=== PATIENT | female | born 1950 | race Caucasian/White ===

== ENCOUNTER 2017-11-16 14:51 | Inpatient (IN) | payer OTHER, MEDICAID, MEDICARE ==
[~2017-11-16] VITALS: Ht 149.9 cm; Wt 82.4 kg
[2017-11-16 15:45] VITALS: BP 134/63; PULSE 48; RESP 16; TEMP 98.7; O2SAT 97
[2017-11-16] MEDS ORDERED: LEXA5TAB PO (16:17)
[2017-11-16] MEDS ORDERED: LANTUS2P SQ (16:19)
[2017-11-16] MEDS ORDERED: ATEN50TA PO (16:19)
[2017-11-16] MEDS ORDERED: LEVO100T5 PO (16:19)
[2017-11-16] MEDS ORDERED: NRDRIP SQ (16:21)
[2017-11-16] MEDS ORDERED: LYRI150C PO (16:22)
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
[2017-11-16 17:56] LABS: AUTOMATED NEUTROPHIL # 5.8 TH/MM3 (1.8-7.7); BASOPHIL % 0.3 % (0.0-2.0); EOSINOPHIL % 0.1 % (0.0-4.0); HEMATOCRIT 41.1 % (35.0-46.0); HEMOGLOBIN 14.2 GM/DL (11.6-15.3); LYMPH % 29.9 % (9.0-44.0); LYMPHOCYTE # 2.8 TH/MM3 (1.0-4.8); MEAN CELL VOLUME 85.9 FL (80.0-100.0); MEAN CORPUSCULAR HEMOGLOBIN 29.7 PG (27.0-34.0); MEAN CORPUSCULAR HGB CONC 34.6 % (32.0-36.0); MEAN PLATELET VOLUME 10.3 FL (7.0-11.0); MONO % 6.8 % (0.0-8.0); MONOCYTE # 0.6 TH/MM3 (0-0.9); NEUT % 62.9 % (16.0-70.0); PLATELET COUNT 142 TH/MM3 (150-450); RED BLOOD COUNT 4.79 MIL/MM3 (4.00-5.30); RED CELL DISTRIBUTION WIDTH 15.7 % (11.6-17.2); WHITE BLOOD COUNT 9.3 TH/MM3 (4.0-11.0)
[2017-11-16 18:01] LABS: BACTERIA, URINE MOD /hpf; BILIRUBIN, URINE NEG (NEG); BLOOD, URINE NEG (NEG); GLUCOSE,URINE NEG (NEG); KETONE, URINE NEG (NEG); MUCUS URINE FEW /lpf (OCC); NITRITE,URINE NEG (NEG); PH, URINE 5.5 (5.0-8.5); SQUAMOUS EPITHELIAL CELL URINE 4 /hpf (0-5); URINE COLOR YELLOW (YELLW/STRAW); URINE LEUKOCYTE ESTERASE NEG (NEG)
[2017-11-16 18:11] LABS: ALKALINE PHOSPHATASE 83 U/L (45-117); TOTAL BILIRUBIN ADULT 0.5 MG/DL (0.2-1.0)
[2017-11-16 18:17] LABS: ALBUMIN 3.3 GM/DL (3.4-5.0); ALT (GPT) 15 U/L (10-53); AST (GOT) 25 U/L (15-37); BICARBONATE 26.4 MEQ/L (21.0-32.0); BLOOD UREA NITROGEN 19 MG/DL (7-18); CALCIUM 9.1 MG/DL (8.5-10.1); CHLORIDE 108 MEQ/L (98-107); CREATININE 1.05 MG/DL (0.50-1.00); GLOMERULAR FILTRATION RATE 52 ML/MIN (>89); GLUCOSE,RANDOM 128 MG/DL (74-106); SODIUM (NA) 142 MEQ/L (136-145)
[2017-11-16] MEDS ORDERED: LORazepam 0.5 MG TAB age > 65 yrs PO PRN (22:45)
[2017-11-16] MEDS ORDERED: ALUMINUM/MAGNESIUM/SIMETH 30 ML CUP PO PRN (22:45)
[2017-11-16] MEDS ORDERED: traZODone HCL 50 MG TAB PO PRN (22:45)
[2017-11-16] MEDS ORDERED: LORazepam 2 MG/ML VIAL - age > 65 yrs IM PRN (22:45)
[2017-11-16] MEDS ORDERED: MAGNESIUM HYDROXIDE SUSP 30 ML CUP PO PRN (22:45)
[2017-11-16] MEDS ORDERED: PILL SPLITTER OTHER PRN (23:00)
[2017-11-17] MEDS: INSULIN DETEMIR 100 UNITS/ML VIAL SQ SCH ×2 (00:20→21:44)
[2017-11-17 01:15] VITALS: BP 178/84; PULSE 54; RESP 16; TEMP 98.1; O2SAT 97
[2017-11-17 05:42] VITALS: BP 158/77; PULSE 66; RESP 16; TEMP 97.8; O2SAT 96
[2017-11-17] MEDS: LEVOTHYROXINE SODIUM 100 MCG TAB PO SCH (05:59)
[2017-11-17] MEDS: INSULIN HUMAN REGULAR 1,000 UNITS/10 ML VIAL SQ SCH ×3 (08:00→16:22)
[2017-11-17] MEDS: ATENOLOL 50 MG TAB PO SCH (08:59)
[2017-11-17] MEDS: PREGABALIN 75 MG CAP PO SCH ×3 (08:59→17:39)
[2017-11-17] MEDS ORDERED: ESCITALOPRAM OXALATE 10 MG TAB PO SCH (09:00)
[2017-11-17] MEDS ORDERED: NICOTINE 21 MG/24 HR PATCH T-DERMAL SCH (09:00)
[2017-11-17] MEDS ORDERED: hydrOXYzine HCL 50 MG TAB PO PRN (15:00)
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
--- NOTE | 2017-11-17 15:52 | PD.CONS ---
HPI Service [facility] Hospitalists Consult Requested By Psychiatric service Reason for Consult Medical management Primary Care Physician No Primary Care Physician Diagnoses: History of Present Illness This is a 67yo female with a PMHX significant for hypertension, DM, hypothyroidism, neuropathy, chronic kidney disease and fibromyalgia who presented to [facility] ED under [place] act by police secondary to suicidal ideation and has since been admitted to the inpatient psychiatric unit. Hospitalist services have been consulted for medical management. Patient seen and examined today. Patient complains of unintentional weight loss over the past 3 years going from 235 pounds 278. She endorses decreased appetite and states she basically eats one meal a day. She complains of chronic one-year history of bilateral lower abdominal pain after eating with intermittent nonbloody diarrhea. She describes the pain as constant sharp pain that occurs shortly after her one meal of the day and last all through the evening until she goes to sleep at night. She denies any alleviating factors. She denies any hematuria or dysuria. She's had a previous colonoscopy done 5 years ago in [place] which revealed diverticulitis per patient report. She denies any associated nausea or vomiting. She denies any fever or chills. Review of Systems Except as stated in HPI: all other systems reviewed are Neg Past Family Social History Allergies: Coded Allergies: No Known Allergies (Unverified , 11/16/17) Past Medical History Hypertension Diabetes Chronic kidney disease Hypothyroidism Depression Neuropathy Fibromyalgia Osteoarthritis Hypokalemia Past Surgical History Right total knee replacement Lumbar fusion Tonsillectomy Left ankle surgery Reported Medications Lyrica (Pregabalin) 150 Mg Cap 150 Mg PO TID Novolin R Inj (Insulin Human Regular) 100 Unit/Ml Inj 10 SQ TIDAC Lantus Inj (Insulin Glargine) 1,000 Unit/10 Ml Vial 60 Units SQ HS Atenolol 50 Mg Tab 50 Mg PO DAILY Levothyroxine (Levothyroxine Sodium) 100 Mcg Tab 100 Mcg PO DAILY Lexapro (Escitalopram Oxalate) 5 Mg Tab 5 Mg PO DAILY Active Ordered Medications Current Medications Medications (Trade) Dose Ordered Sig/Gloria Route Start Time Stop Time Status Last Admin (Tylenol) 650 mg Q4H PRN PO 11/16/17 22:45 (Milk Of Magnesia Liq) 30 ml DAILY PRN PO 11/16/17 22:45 (Mag-Al Plus Susp Liq) 30 ml Q6H PRN PO 11/16/17 22:45 (Synthroid) 100 mcg DAILY@0600 PO 11/17/17 06:00 11/17/17 05:59 (Tenormin) 50 mg DAILY PO 11/17/17 09:00 11/17/17 08:59 (Pill Splitter) 1 ea UNSCH PRN OTHER 11/16/17 23:00 (Levemir Inj) 60 units HS SQ 11/17/17 00:01 11/17/17 00:20 (NovoLIN R INJ) 10 units TIDAC SQ 11/17/17 08:00 (Lyrica) 150 mg TID PO 11/17/17 09:00 11/17/17 12:02 (Lexapro) 10 mg DAILY PO 11/18/17 09:00 (Desyrel) 200 mg HS PRN PO 11/17/17 21:00 (Atarax) 50 mg Q6H PRN PO 11/17/17 15:00 Family History Heart disease, lung cancer Social History Patient reports tobacco use of three quarters of a pack per day beginning in her late 30s. She denies any alcohol use. She reports marijuana use. Physical Exam Vital Signs Vital Signs Date Time Temp Pulse Resp B/P (MAP) Pulse Ox O2 Delivery O2 Flow Rate FiO2 11/17/17 05:42 97.8 66 16 158/77 (104) 96 11/17/17 01:15 98.1 54 16 178/84 (115) 97 Physical Exam GENERAL: This is a well-nourished, well-developed female patient, in no apparent distress. Awake and alert. Calm and pleasant. SKIN: No rashes, ecchymoses or lesions. Cool and dry. HEAD: Atraumatic. Normocephalic. No temporal or scalp tenderness. EYES: Pupils equal round and reactive. Extraocular motions intact. No scleral icterus. No injection or drainage. ENT: Nose without bleeding or purulent drainage. Throat without erythema, tonsillar hypertrophy or exudate. Uvula midline. Airway patent. NECK: Trachea midline. No lymphadenopathy. Supple, nontender, no meningeal signs. CARDIOVASCULAR: Regular rate and rhythm without murmurs, gallops, or rubs. RESPIRATORY: Clear to auscultation. Breath sounds equal bilaterally. No wheezes , rales, or rhonchi. GASTROINTESTINAL: Abdomen soft, non-tender, nondistended. No hepato-splenomegaly , or palpable masses. No guarding. (+)Abdominal hernia. MUSCULOSKELETAL: Extremities without clubbing, cyanosis, or edema. No joint tenderness, effusion, or edema noted. No calf tenderness. NEUROLOGICAL: Awake and alert. Cranial nerves II through XII grossly intact. Motor and sensory grossly within normal limits. Five out of 5 muscle strength in all muscle groups. Normal speech. Laboratory Laboratory Tests Test 11/16/17 16:50 11/16/17 17:24 Urine Color YELLOW Urine Turbidity CLEAR Urine pH 5.5 Urine Specific [place] 1.025 Urine Protein TRACE Urine Glucose (UA) NEG Urine Ketones NEG Urine Occult Blood NEG Urine Nitrite NEG Urine Bilirubin NEG Urine Urobilinogen LESS THAN 2.0 Urine Leukocyte Esterase NEG Urine RBC 1 Urine WBC 1 Urine Squamous Epithelial Cells 4 Urine Bacteria MOD Urine Mucus FEW Microscopic Urinalysis Comment CULTURE INDICATED White Blood Count 9.3 Red Blood Count 4.79 Hemoglobin 14.2 Hematocrit 41.1 Mean Corpuscular Volume 85.9 Mean Corpuscular Hemoglobin 29.7 Mean Corpuscular Hemoglobin Concent 34.6 Red Cell Distribution Width 15.7 Platelet Count 142 Mean Platelet Volume 10.3 Neutrophils (%) (Auto) 62.9 Lymphocytes (%) (Auto) 29.9 Monocytes (%) (Auto) 6.8 Eosinophils (%) (Auto) 0.1 Basophils (%) (Auto) 0.3 Neutrophils # (Auto) 5.8 Lymphocytes # (Auto) 2.8 Monocytes # (Auto) 0.6 Eosinophils # (Auto) 0.0 Basophils # (Auto) 0.0 CBC Comment DIFF FINAL Differential Comment Blood Urea Nitrogen 19 Creatinine 1.05 Random Glucose 128 Total Protein 7.0 Albumin 3.3 Calcium Level 9.1 Alkaline Phosphatase 83 Aspartate Amino Transf (AST/SGOT) 25 Alanine Aminotransferase (ALT/SGPT) 15 Total Bilirubin 0.5 Sodium Level 142 Potassium Level 4.2 Chloride Level 108 Carbon Dioxide Level 26.4 Anion Gap 8 Estimat Glomerular Filtration Rate 52 Date/Time Source Procedure Growth Status 11/16/17 16:50 Urine Clean Catch Urine Culture Pending Received Result Diagram: 11/16/17 1724 11/16/17 1724 Assessment and Plan Assessment and Plan 67yo female with a PMHX significant for hypertension, DM, hypothyroidism, neuropathy, chronic kidney disease and fibromyalgia who presented to [facility] ED under [place] act by police secondary to suicidal ideation and has since been admitted to the inpatient psychiatric unit. Hospitalist services have been consulted for medical management. Depression Suicidal ideation - Management per psychiatric team Abdominal pain, chronic Intermittent diarrhea Unintentional weight loss - She reports chronic bilateral lower abdominal pain beginning shortly after eating and lasts for hours without any alleviating factors - Consult GI, appreciate recommendations Hypertension - Bradycardia with heart rate 48 at ED presentation. - Patients home dose of atenolol resumed by primary team. May need to discontinue and change to different antihypertensive. Will continue to monitor heart rate. - Continue to monitor BP and adjust treatment accordingly Diabetes - Patient continued on home dose of Levemir 60 units at night. Hold preprandial insulin coverage for now. - Accu-Cheks and insulin sliding scale - obtain HgbA1c CKD - creatinine 1.05/GFR 52 - unknown baseline - Avoid nephrotoxic agents - Continue to monitor kidney function as indicated Hypothyroidism - Resume home dose of levothyroxine 100 g daily - obtain TSH level Neuropathy - continue on home dose of Lyrica DVT prophylaxis - Patient is ambulatory Thank you very kindly for this consultation. We'll continue to follow patient with you. Discussed Condition With Patient, nursing staff Kaylee Sandoval Nov 17, 2017 15:52
[2017-11-17] MEDS ORDERED: GLUCAGON 1 MG/ML VIAL OTHER PRN (16:45)
[2017-11-17] MEDS ORDERED: DEXTROSE 50% IN WATER 50 ML VIAL(D50) IV PUSH PRN (16:45)
[2017-11-17] MEDS: INSULIN ASPART SUPPLEMENTAL SCALE SQ SCH ×2 (17:00→21:00)
[2017-11-17] MEDS ORDERED: PREGABALIN 75 MG CAP PO SCH (18:00)
[2017-11-17] MEDS: ACETAMINOPHEN 325 MG TAB PO PRN (18:06)
--- NOTE | 2017-11-17 18:34 | EKG ---
Date Performed: 11/16/2017 Time Performed: 17:10:10 PTAGE: 67 years EKG: SINUS BRADYCARDIA BORDERLINE ECG NO PREVIOUS TRACING DOCTOR: Jorge Whelan Interpretating Date/Time 11/17/2017 18:29:49
[2017-11-17 18:38] VITALS: BP 158/77; PULSE 49; RESP 17; TEMP 97.5; O2SAT 98
[2017-11-17 18:39] VITALS: BP 158/77; PULSE 49; RESP 17; TEMP 97.5; O2SAT 98
[2017-11-17] MEDS: traZODone HCL 100 MG TAB PO PRN (20:42)
[2017-11-17] MEDS ORDERED: INSULIN GLARGINE 1,000 UNITS/10 ML VIAL SQ SCH (21:00)
[2017-11-18] MEDS: LEVOTHYROXINE SODIUM 100 MCG TAB PO SCH (05:58)
[2017-11-18 06:03] VITALS: BP 116/61; PULSE 54; RESP 18; TEMP 98.3; O2SAT 96
[2017-11-18] MEDS: INSULIN ASPART SUPPLEMENTAL SCALE SQ SCH ×4 (08:00→21:00)
[2017-11-18 08:34] LABS: BICARBONATE 22.9 MEQ/L (21.0-32.0); CALCIUM 9.8 MG/DL (8.5-10.1); CHLORIDE 105 MEQ/L (98-107); CREATININE 1.04 MG/DL (0.50-1.00); GLOMERULAR FILTRATION RATE 53 ML/MIN (>89); GLUCOSE,RANDOM 106 MG/DL (74-106); SODIUM (NA) 141 MEQ/L (136-145)
[2017-11-18 08:35] LABS: CHOLESTEROL 260 MG/DL (120-200); TRIGLYCERIDES 467 MG/DL (42-150)
[2017-11-18 08:36] LABS: BLOOD UREA NITROGEN 17 MG/DL (7-18)
[2017-11-18 08:45] LABS: HDL CHOLESTEROL 31.3 MG/DL (40.0-60.0)
[2017-11-18] MEDS: ATENOLOL 50 MG TAB PO SCH (08:58)
[2017-11-18] MEDS: ACETAMINOPHEN 325 MG TAB PO PRN (08:58)
[2017-11-18] MEDS: ESCITALOPRAM OXALATE 10 MG TAB PO SCH (08:59)
[2017-11-18] MEDS: PREGABALIN 75 MG CAP PO SCH ×3 (08:59→18:09)
[2017-11-18] MEDS ORDERED: ATENOLOL 50 MG TAB PO SCH (09:00)
[2017-11-18] MEDS ORDERED: LEVOTHYROXINE SODIUM 100 MCG TAB PO SCH (09:00)
--- NOTE | 2017-11-18 11:52 | HHI.PR ---
Subjective Remarks Follow-up on patient with postprandial abdominal pain. Patient seen and examined. Patient states abdominal pain is unchanged. She denies any fever or chills. Denies any chest pain or shortness of breath. Discussed with patient use of atenolol as blood pressure medication given bradycardia during this admission. Patient denies any history of atrial fibrillation. Discussed starting on statin therapy for elevated triglyceride level 467. Patient refuses statin therapy but is amenable to fish oil supplementation. Discussed lifestyle modifications. Also recommended patient follow up with her primary care physician as outpatient to have lipid profile redrawn in 6-8 weeks. Objective Vitals Vital Signs Date Time Temp Pulse Resp B/P (MAP) Pulse Ox O2 Delivery O2 Flow Rate FiO2 11/18/17 06:03 98.3 54 18 116/61 (79) 96 11/17/17 18:39 97.5 49 17 158/77 (104) 98 11/17/17 18:38 97.5 49 17 158/77 (104) 98 I/O 11/17/17 11/17/17 11/17/17 11/18/17 11/18/17 11/18/17 07:00 15:00 23:00 07:00 15:00 23:00 Intake Total 240 ml 360 ml Balance 240 ml 360 ml Intake Oral 240 ml 360 ml Result Diagram: 11/16/17 1724 11/18/17 0625 Objective Remarks GENERAL: This is a well-nourished, well-developed female patient, in no apparent distress. Awake and alert. Seated in the dayroom eating lunch. SKIN: Cool and dry. HEAD: Atraumatic. Normocephalic. EYES: Extraocular motions intact. No scleral icterus. No injection or drainage. ENT: Nose without bleeding or purulent drainage. Airway patent. MMM. NECK: Trachea midline. CARDIOVASCULAR: Regular rate and rhythm without murmurs, gallops, or rubs. RESPIRATORY: Clear to auscultation. Breath sounds equal bilaterally. No wheezes , rales, or rhonchi. GASTROINTESTINAL: Abdomen soft, non-tender, nondistended. (+)Abdominal hernia. MUSCULOSKELETAL: Extremities without clubbing, cyanosis, or edema. NEUROLOGICAL: Awake and alert. Able to move all extremities spontaneously. No focal neurologic findings. Normal speech. Medications and IVs Active Medications Atenolol (Tenormin) 50 mg DAILY PO; Start 11/18/17 at 09:00; Stop 11/18/17 at 09 :00; Status DC Dextrose (D50w (Vial) Inj) 50 ml UNSCH PRN IV PUSH; Start 11/17/17 at 16:45 Escitalopram Oxalate (Lexapro) 10 mg DAILY PO Last administered on 11/18/17at 08: 59; Admin Dose 10 MG; Start 11/18/17 at 09:00 Glucagon (Glucagon Inj) 1 mg UNSCH PRN OTHER; Start 11/17/17 at 16:45 Hydroxyzine HCl (Atarax) 50 mg Q6H PRN PO; Start 11/17/17 at 15:00 Insulin Aspart (NovoLOG SUPPLEMENTAL SCALE) 1 ACHS SLIDING SCALE SQ; Start at 17:00 Insulin Glargine (Lantus Inj) 60 units HS SQ; Start 11/17/17 at 21:00; Stop at 21:00; Status DC Levothyroxine Sodium (Synthroid) 100 mcg DAILY PO; Start 11/18/17 at 09:00; Stop 11/18/17 at 09:00; Status DC Pregabalin (Lyrica) 150 mg TID PO; Start 11/17/17 at 18:00; Stop 11/17/17 at 18: 00; Status DC Trazodone HCl (Desyrel) 200 mg HS PRN PO Last administered on 11/17/17at 20:42; Admin Dose 200 MG; Start 11/17/17 at 21:00 A/P Assessment and Plan 67yo female with a PMHX significant for hypertension, DM, hypothyroidism, neuropathy, chronic kidney disease and fibromyalgia who presented to [facility] ED under [place] act by police secondary to suicidal ideation and has since been admitted to the inpatient psychiatric unit. Hospitalist services have been consulted for medical management. Depression Suicidal ideation Polysubstance abuse - Management per psychiatric team - UDS positive for amphetamines, cocaine and cannabinoids Abdominal pain, chronic Intermittent diarrhea Unintentional weight loss - She reports chronic bilateral lower abdominal pain beginning shortly after eating and lasts for hours without any alleviating factors - GI consulted, awaiting recommendations, appreciate assistance. Hypertension - Bradycardia on atenolol. UDS positive for cocaine. - Discontinue atenolol. Start low dose Lisinopril and Norvasc. - Continue to monitor BP and adjust treatment accordingly Diabetes - Patient continued on home dose of Levemir 60 units at night. Hold preprandial insulin coverage for now. Blood sugar 75 this morning. Hold Levemir for now. - Accu-Cheks and insulin sliding scale - HgbA1c pending CKD - creatinine 1.05/GFR 52 - unknown baseline - Avoid nephrotoxic agents - Continue to monitor kidney function as indicated Hypothyroidism - Continue home dose of levothyroxine 100 g daily - TSH level 3.290 Hypertriglyceridemia - Discussed with patient starting statin therapy. Patient currently refuses. She is agreeable to fish oil supplementation. Discussed lifestyle/ dietary modification. - Recommend patient follow-up with repeat lipid profile as outpatient with PCP in 6-8 weeks. Neuropathy - continue on home dose of Lyrica DVT prophylaxis - Patient is ambulatory Kaylee Sandoval Nov 18, 2017 11:52
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
--- NOTE | 2017-11-18 13:32 | HHI.PYPN ---
Subjective Remarks Patient seen today in [place] with floor staff, and nurse Sabine, chart review, compliant medications, hospitalist consultation review noted and appreciated. Patient continues somewhat scattered focusing on her children her experiences interrelationships of many years ago. I continued to refocus her on the present situation and her need to make decisions concerning placement attempts at [facility] from her children. At this time I feel patient would probably be best served by being placed in RETIREMENT for a few months allow her to gain some confidence and abilities to live independently. We will be judicious with the medications. We will help her find mental health services perhaps with community management services. For now continue treatment Review of Systems Except as stated in HPI: all other systems reviewed are Neg Mental Status Examination Appearance: Appropriate Consciousness: Alert Orientation: Person, Place, Date/Time Speech: Unremarkable, Rapid Language: Adequate (somewhat) Fund of Knowledge: Adequate Attention and Concentration: Other (fair) Memory: Unremarkable (fair) Mood: Sad Affect: Other (slight increased range and intensity) Thought Process & Associations: Intact Thought Content: Appropriate Hallucination Type: None Delusion Type: Paranoid (perhaps mildly) Suicidal Ideation: Yes (denies) Suicidal Plan: Yes (denies) Suicidal Intention: Yes (denies) Homicidal Ideation: No Homicidal Plan: No Homicidal Intention: No Insight: Poor Judgment: Poor Results Labs Test 11/18/17 06:25 Blood Urea Nitrogen 17 MG/DL Creatinine 1.04 MG/DL Random Glucose 106 MG/DL Calcium Level 9.8 MG/DL Sodium Level 141 MEQ/L Potassium Level 3.6 MEQ/L Chloride Level 105 MEQ/L Carbon Dioxide Level 22.9 MEQ/L Anion Gap 13 MEQ/L Estimat Glomerular Filtration Rate 53 ML/MIN Triglycerides Level 467 MG/DL Cholesterol Level 260 MG/DL LDL Cholesterol MG/DL HDL Cholesterol 31.3 MG/DL Cholesterol/HDL Ratio 8.30 RATIO Thyroid Stimulating Hormone 3rd Gen 3.290 uIU/ML Date/Time Source Procedure Growth Status 11/16/17 16:50 Urine Clean Catch Urine Culture - Final 50-100,000 CFU/ML MIXED GRAM POSITIVE... Complete Vitals/IOs Vital Signs Date Time Temp Pulse Resp B/P (MAP) Pulse Ox O2 Delivery O2 Flow Rate FiO2 11/18/17 06:03 98.3 54 18 116/61 (79) 96 Assessment & Plan Problem List: (1) Adjustment disorder with mixed disturbance of emotions and conduct ICD Codes: F43.25 - Adjustment disorder with mixed disturbance of emotions and conduct Assessment & Plan Estimated LOS: days patient continues somewhat depressed irritable needy codependent. Will have counselor work with patient looking into [facility] placement, will continue working with the hospitalist team also Justification for Cont. Inpt. At this time patient with decompensated placed in a lower level of care Discharge Planning Need to work with patient related to placement issues return to family versus [facility] Request HC Surrog/Guard Advoc?: No Ronald Whittington MD Nov 18, 2017 13:32
--- NOTE | 2017-11-18 15:17 | PD.CONS ---
HPI History of Present Illness This is a 67 year old female admitted under amezquita act for suicidal ideation. GI has been consulted for unintentional weight loss and lower abd pain. Over the last 2 years she has lost over 60 lbs. She has been having lower abd pain that is worse after eating and worse in the afternoon for the last 2.5 years. IN the last year she has had decreaesd appetite and loose stools. Denies n/v, blood in stool, dark tarry stool. Says she was diagnosed with peptic ulcer disease but is not sure how she was diagnosed. Last colonoscopy was 5 y ago and diverticulosis found. (Ada Contreras) PFSH Past Medical History fibromyalgia diverticulosis PUD HTN hypthyroid CKD Past Surgical History knee replacement PLIF ankle surgery (Ada Contreras) Coded Allergies: No Known Allergies (Unverified , 11/16/17) Family History OA fibromyalgia DM Social History denies ETOH, former smoker admits use of marijuana denies other illicit drug use but was pos for cocaine, amphetamines (Ada Contreras) Review of Systems Constitutional: COMPLAINS OF: Weight loss, DENIES: Fever Endocrine: DENIES: Polydipsia Eyes: DENIES: Blurred vision Ears, nose, mouth, throat: DENIES: Hearing loss Respiratory: DENIES: Cough Cardiovascular: DENIES: Chest pain Gastrointestinal: COMPLAINS OF: Abdominal pain, Diarrhea, DENIES: Black stools , Bloody stools, Nausea, Vomiting Genitourinary: DENIES: Hematuria Musculoskeletal: DENIES: Joint Swelling Integumentary: DENIES: Abnormal pigmentation Hematologic/lymphatic: DENIES: Bruising Neurologic: COMPLAINS OF: Abnormal gait (ambulates with walker) Psychiatric: DENIES: Confusion (Ada Contreras) GI Exam Vitals I&O Vital Signs Date Time Temp Pulse Resp B/P (MAP) Pulse Ox O2 Delivery O2 Flow Rate FiO2 11/18/17 06:03 98.3 54 18 116/61 (79) 96 11/17/17 18:39 97.5 49 17 158/77 (104) 98 11/17/17 18:38 97.5 49 17 158/77 (104) 98 I/O 11/17/17 11/17/17 11/17/17 11/18/17 11/18/1718 07:00 15:00 23:00 07:00 15:00 23:00 Intake Total 240 ml 360 ml Balance 240 ml 360 ml Intake Oral 240 ml 360 ml Laboratory Test 11/18/17 06:25 Blood Urea Nitrogen 17 MG/DL Creatinine 1.04 MG/DL Random Glucose 106 MG/DL Calcium Level 9.8 MG/DL Sodium Level 141 MEQ/L Potassium Level 3.6 MEQ/L Chloride Level 105 MEQ/L Carbon Dioxide Level 22.9 MEQ/L Anion Gap 13 MEQ/L Estimat Glomerular Filtration Rate 53 ML/MIN Triglycerides Level 467 MG/DL Cholesterol Level 260 MG/DL LDL Cholesterol MG/DL HDL Cholesterol 31.3 MG/DL Cholesterol/HDL Ratio 8.30 RATIO Thyroid Stimulating Hormone 3rd Gen 3.290 uIU/ML Date/Time Source Procedure Growth Status 11/16/17 16:50 Urine Clean Catch Urine Culture - Final 50-100,000 CFU/ML MIXED GRAM POSITIVE... Complete Physical Examination HEENT: PERRL; normocephalic; atraumatic; no jaundice. CHEST: CTA CARDIAC: RRR ABDOMEN: Soft, obese, nontender; no hepatosplenomegaly; bowel sounds are present in all four quadrants. EXTREMITIES: No clubbing, cyanosis, or edema. SKIN: Normal; no rash; no jaundice. INSIDE SOLAR SALES CONSULTANT: No focal deficits; alert and oriented times three. (Ada Contreras) Assessment and Plan Plan ASSESSMENT - loose stool, unintended weight loss, decreased appetite, lower abd pain - unclear etiology. loss > 60lbs in last 2 y + lower abd pain last year decreased appetite, loose stools. last colonsocopy 5 y ago with finding diverticulosis. unclear etiology could be r/t depression - amezquita act, suicidal ideation - per psych pt is competent to give consent for treatment PLAN - EGD and colonscopy - obtain consent - clear liquids - NPO after midnight - golytely prep - consider CT abd - further recs to follow pt seen by myself and Dr Canales and this note is written on his behalf (Ada Contreras) Physician Comments Patient seen and examined Agree with above Continue current supportive care Monitor labs Plan for an EGD and a colonoscopy tomorrow If negative we'll pursue CT of the abdomen (Prasanna Canales MD) Ada Contreras Nov 18, 2017 15:17 Prasanna Canales MD Nov 18, 2017 21:30
[2017-11-18] MEDS ORDERED: PEG (High)/E-LYTE SOLN 4000 ML BTL PO ONE (16:15)
[2017-11-18 16:45] VITALS: BP 135/78; PULSE 44; RESP 18; TEMP 97.9; O2SAT 97
[2017-11-18 16:46] LABS: HEMOGLOBIN A1C 6.9 % (4.3-6.0)
[2017-11-19] MEDS: ACETAMINOPHEN 325 MG TAB PO PRN (04:58)
[2017-11-19 05:46] VITALS: BP 147/67; PULSE 58; RESP 16; TEMP 97; O2SAT 97
[2017-11-19] MEDS: LEVOTHYROXINE SODIUM 100 MCG TAB PO SCH (06:08)
[2017-11-19] MEDS: INSULIN ASPART SUPPLEMENTAL SCALE SQ SCH ×4 (08:00→20:26)
[2017-11-19] MEDS: ESCITALOPRAM OXALATE 10 MG TAB PO SCH (09:00)
[2017-11-19] MEDS: LISINOPRIL 5 MG TAB PO SCH (09:00)
[2017-11-19] MEDS: amLODIPine BESYLATE 5 MG TAB PO SCH (09:00)
[2017-11-19] MEDS: PREGABALIN 75 MG CAP PO SCH ×3 (09:00→18:00)
--- NOTE | 2017-11-19 16:40 | HHI.PYPN ---
Subjective Remarks Patient seen in day room with her staff, chart review, patient discussed with nurse. Patient just returned from colonoscopy and is eating dinner heartily. Patient alert oriented calm cooperative. She denies suicidality homicidality voices or visions. Continues though some of a hopelessness and the manipulation with this lady. However at this time with discussion with the treatment team refill patient no longer meets criteria for acute inpatient psychiatric hospitalization. I did share this and discuss this with the patient. Patient to be discharged tomorrow. She needs to use her resources help her find a placement will aware counselor also assist if possible. Review of Systems Except as stated in HPI: all other systems reviewed are Neg Mental Status Examination Appearance: Appropriate Consciousness: Alert Orientation: Person, Place, Date/Time Speech: Unremarkable, Rapid Language: Adequate (somewhat) Fund of Knowledge: Adequate Attention and Concentration: Other (fair) Memory: Unremarkable (fair) Mood: Sad Affect: Other (slight increased range and intensity) Thought Process & Associations: Intact Thought Content: Appropriate Hallucination Type: None Delusion Type: Paranoid (perhaps mildly) Suicidal Ideation: Yes (denies) Suicidal Plan: Yes (denies) Suicidal Intention: Yes (denies) Homicidal Ideation: No Homicidal Plan: No Homicidal Intention: No Insight: Poor Judgment: Poor Results Labs Date/Time Source Procedure Growth Status 11/16/17 16:50 Urine Clean Catch Urine Culture - Final 50-100,000 CFU/ML MIXED GRAM POSITIVE... Complete Vitals/IOs Vital Signs Date Time Temp Pulse Resp B/P (MAP) Pulse Ox O2 Delivery O2 Flow Rate FiO2 11/19/17 05:46 97.0 58 16 147/67 (93) 97 Assessment & Plan Problem List: (1) Adjustment disorder with mixed disturbance of emotions and conduct ICD Codes: F43.25 - Adjustment disorder with mixed disturbance of emotions and conduct Assessment & Plan Estimated LOS: days patient's mood is improving, she is more alert oriented focused socializing well with other patients on the day room. Did tell with colonoscopy all difficult she is not eating her dinner without problems. Consider discharge tomorrow Justification for Cont. Inpt. At this time patient Seen in the placement of an appropriate level of care needed for the 21st observation Discharge Planning Consider discharge tomorrow Request HC Surrog/Guard Advoc?: No Ronald Whittington MD Nov 19, 2017 16:40
[2017-11-19 17:10] VITALS: BP 168/77; PULSE 50; RESP 16; TEMP 97.5; O2SAT 97
[2017-11-20 05:56] VITALS: BP 126/63; PULSE 82; RESP 18; TEMP 98.2; O2SAT 97
[2017-11-20] MEDS: LEVOTHYROXINE SODIUM 100 MCG TAB PO SCH (06:00)
[2017-11-20] MEDS: INSULIN ASPART SUPPLEMENTAL SCALE SQ SCH ×4 (08:00→20:44)
[2017-11-20] MEDS: ESCITALOPRAM OXALATE 10 MG TAB PO SCH (08:47)
[2017-11-20] MEDS: amLODIPine BESYLATE 5 MG TAB PO SCH (08:47)
[2017-11-20] MEDS: PREGABALIN 75 MG CAP PO SCH ×3 (08:48→17:26)
[2017-11-20] MEDS: LISINOPRIL 5 MG TAB PO SCH (08:48)
--- NOTE | 2017-11-20 11:42 | HHI.PYPN ---
Subjective Remarks Patient seen in her room with nurse Red, chart review, discussed with nurse. Patient compliant medications, states she's been unable to find anybody who would take her in at this time. She continues somewhat manipulative needy and dependent. However I also feel that discharge at this time without having some type of placement up with this lady at significant risk. Thus I will allow her to remain here over the weekend, this is recently and there is no available lodging that she could afford if he did have money. However I was quite firm with her that she needs to find some type of placement over this weekend or she may be discharged with a homeless status on Thursday. Patient did denies suicidality homicidality voices or visions we will increase Lexapro to 20 mg daily Review of Systems Except as stated in HPI: all other systems reviewed are Neg Mental Status Examination Appearance: Appropriate Consciousness: Alert Orientation: Person, Place, Date/Time Speech: Unremarkable, Rapid Language: Adequate (somewhat) Fund of Knowledge: Adequate Attention and Concentration: Other (fair) Memory: Unremarkable (fair) Mood: Sad Affect: Other (slight increased range and intensity) Thought Process & Associations: Intact Thought Content: Appropriate Hallucination Type: None Delusion Type: Paranoid (perhaps mildly) Suicidal Ideation: Yes (denies) Suicidal Plan: Yes (denies) Suicidal Intention: Yes (denies) Homicidal Ideation: No Homicidal Plan: No Homicidal Intention: No Insight: Poor Judgment: Poor Results Labs Date/Time Source Procedure Growth Status 11/16/17 16:50 Urine Clean Catch Urine Culture - Final 50-100,000 CFU/ML MIXED GRAM POSITIVE... Complete Vitals/IOs Vital Signs Date Time Temp Pulse Resp B/P (MAP) Pulse Ox O2 Delivery O2 Flow Rate FiO2 11/20/17 05:56 98.2 82 18 126/63 (84) 97 Intake and Output 11/20/17 11/20/17 11/21/17 08:00 16:00 00:00 Intake Total 240 ml Balance 240 ml Assessment & Plan Problem List: (1) Adjustment disorder with mixed disturbance of emotions and conduct ICD Codes: F43.25 - Adjustment disorder with mixed disturbance of emotions and conduct Assessment & Plan Estimated LOS: days patient weighs somewhat depressed and anxious though this seems to be somewhat more related to placement issues and homelessness at this time. For now I will adjust her Lexapro increasing it to 20 mg daily we'll continue hospitalization of the weekend with consideration of discharge on Thursday 11/23 Justification for Cont. Inpt. At this time patient may decompensate now placed in an appropriate level of care Discharge Planning Patient will be given the weekend to finding appropriate placement Request HC Surrog/Guard Advoc?: No Ronald Whittington MD Nov 20, 2017 11:42
--- NOTE | 2017-11-20 14:27 | HHI.PR ---
Subjective Remarks Follow-up on patient with abdominal pain, hypertension. Patient seen and examined. Denies any abdominal pain at this time. Denies any fever or chills. When asked if she has any chest pain or shortness of breath she replies "I do not know". States she feels depressed. Objective Vitals Vital Signs Date Time Temp Pulse Resp B/P (MAP) Pulse Ox O2 Delivery O2 Flow Rate FiO2 11/20/17 05:56 98.2 82 18 126/63 (84) 97 11/19/17 17:10 97.5 50 16 168/77 (107) 97 I/O 11/19/17 11/19/17 11/19/17 11/20/17 11/20/17 11/20/17 07:00 15:00 23:00 07:00 15:00 23:00 Intake Total 480 ml Balance 480 ml Intake Oral 480 ml Result Diagram: 11/16/17 1724 11/18/17 0625 Objective Remarks GENERAL: This is a well-nourished, well-developed female patient, in no apparent distress. Awake and alert. Lying in bed. SKIN: Cool and dry. HEAD: Atraumatic. Normocephalic. EYES: Extraocular motions intact. No scleral icterus. No injection or drainage. ENT: Nose without bleeding or purulent drainage. Airway patent. MMM. NECK: Trachea midline. CARDIOVASCULAR: Regular rate and rhythm without murmurs, gallops, or rubs. RESPIRATORY: Clear to auscultation. Breath sounds equal bilaterally. No wheezes , rales, or rhonchi. GASTROINTESTINAL: Abdomen soft, non-tender, nondistended. (+)Abdominal hernia. MUSCULOSKELETAL: Extremities without clubbing, cyanosis, or edema. NEUROLOGICAL: Awake and alert. Able to move all extremities spontaneously. No focal neurologic findings. Normal speech. Medications and IVs Current Medications Medications (Trade) Dose Ordered Sig/Gloria Route Start Time Stop Time Status Last Admin (Tylenol) 650 mg Q4H PRN PO 11/16/17 22:45 11/19/17 04:58 (Milk Of Magnesia Liq) 30 ml DAILY PRN PO 11/16/17 22:45 (Mag-Al Plus Susp Liq) 30 ml Q6H PRN PO 11/16/17 22:45 (Synthroid) 100 mcg DAILY@0600 PO 11/17/17 06:00 11/20/17 06:00 (Pill Splitter) 1 ea UNSCH PRN OTHER 11/16/17 23:00 (Levemir Inj) 60 units HS SQ 11/17/17 00:01 Future Hold 11/17/17 21:44 (NovoLIN R INJ) 10 units TIDAC SQ 11/17/17 08:00 Future Hold (Lyrica) 150 mg TID PO 11/17/17 09:00 11/20/17 13:51 (Desyrel) 200 mg HS PRN PO 11/17/17 21:00 11/17/17 20:42 (Atarax) 50 mg Q6H PRN PO 11/17/17 15:00 (D50w (Vial) Inj) 50 ml UNSCH PRN IV PUSH 11/17/17 16:45 (Glucagon Inj) 1 mg UNSCH PRN OTHER 11/17/17 16:45 (NovoLOG SUPPLEMENTAL SCALE) 1 ACHS SLIDING SCALE SQ 11/17/17 17:00 11/19/17 20:26 (Prinivil) 2.5 mg DAILY PO 11/19/17 09:00 11/20/17 08:48 (Norvasc) 5 mg DAILY PO 11/19/17 09:00 11/20/17 08:47 (Lexapro) 20 mg DAILY PO 11/21/17 09:00 A/P Assessment and Plan 67yo female with a PMHX significant for hypertension, DM, hypothyroidism, neuropathy, chronic kidney disease and fibromyalgia who presented to [facility] ED under Kohler act by police secondary to suicidal ideation and has since been admitted to the inpatient psychiatric unit. Hospitalist services have been consulted for medical management. Depression Suicidal ideation Polysubstance abuse - Management per psychiatric team - UDS positive for amphetamines, cocaine and cannabinoids Abdominal pain, chronic Intermittent diarrhea Unintentional weight loss - She reports chronic bilateral lower abdominal pain beginning shortly after eating and lasts for hours without any alleviating factors - GI following, status post EGD and colonoscopy which were both essentially unremarkable. Awaiting biopsy results. Recommended high-fiber diet and repeat colonoscopy in 5 years. Hypertension - Bradycardia on atenolol. UDS positive for cocaine. - Discontinue atenolol. Start low dose Lisinopril and Norvasc. - Continue to monitor BP and adjust treatment accordingly Diabetes - Patient continued on home dose of Levemir 60 units at night. Hold preprandial insulin coverage for now. Blood sugars well controlled off of any scheduled insulin. Continue to hold home Levemir. - Accu-Cheks and insulin sliding scale - HgbA1c 6.9 CKD - creatinine 1.05/GFR 52 - unknown baseline - Avoid nephrotoxic agents - Continue to monitor kidney function as indicated Hypothyroidism - Continue home dose of levothyroxine 100 g daily - TSH level 3.290 Hypertriglyceridemia - Discussed with patient starting statin therapy. Patient currently refuses. She is agreeable to daily fish oil supplementation. Discussed lifestyle/dietary modification. - Recommend patient follow-up with repeat lipid profile as outpatient with PCP in 6-8 weeks. Neuropathy - continue on home dose of Lyrica DVT prophylaxis - Patient is ambulatory Patient appears stable from medical standpoint. We will sign off for now. Please reconsult if needed. Kaylee Sandoval Nov 20, 2017 14:27
--- NOTE | 2017-11-20 15:09 | HHI.GIFU ---
Subjective Remarks Pt sitting in day room. Abd pain unchanged. She said she is full from eating so much. (Ada Contreras) Objective Vitals I&O Vital Signs Date Time Temp Pulse Resp B/P (MAP) Pulse Ox O2 Delivery O2 Flow Rate FiO2 11/20/17 05:56 98.2 82 18 126/63 (84) 97 11/19/17 17:10 97.5 50 16 168/77 (107) 97 I/O 11/19/17 11/19/17 11/19/17 11/20/17 11/20/17 11/20/17 07:00 15:00 23:00 07:00 15:00 23:00 Intake Total 480 ml Balance 480 ml Intake Oral 480 ml Laboratory Date/Time Source Procedure Growth Status 11/16/17 16:50 Urine Clean Catch Urine Culture - Final 50-100,000 CFU/ML MIXED GRAM POSITIVE... Complete Physical Exam HEENT: PERRL; normocephalic; atraumatic; no jaundice. CHEST: CTA CARDIAC: RRR ABDOMEN: Soft, obese, nontender; no hepatosplenomegaly; bowel sounds are present in all four quadrants. EXTREMITIES: No clubbing, cyanosis, or edema. SKIN: Normal; no rash; no jaundice. SAP GATHERER: No focal deficits; alert and oriented times three. (Ada Contreras) Assessment and Plan Plan ASSESSMENT - loose stool, unintended weight loss, decreased appetite, lower abd pain - unclear etiology. loss > 60lbs in last 2 y + lower abd pain last year decreased appetite, loose stools. last colonsocopy 5 y ago with finding diverticulosis. unclear etiology could be r/t depression - amezquita act, suicidal ideation - per psych pt is competent to give consent for treatment 11/20/17 S/P EGD and colonoscopy 11/19 aside from small rectal polyp there were no abnormal findings. Bx pending. PLAN - [facility] - await bx - f/u with GI after d/c - GI will sign off. Please reconsult if needed pt seen by myself and Dr Canales and this note is written on his behalf (Ada Contreras) Physician Comments Patient seen and examined Agree with above Continue with current supportive care Monitor labs We will sign off (Prasanna Canales MD) Ada Contreras Nov 20, 2017 15:09 Prasanna Canales MD Nov 20, 2017 19:49
[2017-11-20 18:00] VITALS: BP 149/70; PULSE 105; RESP 18; TEMP 97.9; O2SAT 97
[2017-11-20] MEDS: traZODone HCL 100 MG TAB PO PRN (20:48)
[2017-11-20] MEDS: ACETAMINOPHEN 325 MG TAB PO PRN (20:49)
[2017-11-21] MEDS: LEVOTHYROXINE SODIUM 100 MCG TAB PO SCH (05:37)
[2017-11-21 06:14] VITALS: BP 121/58; PULSE 56; RESP 16; TEMP 97.7; O2SAT 97
[2017-11-21] MEDS: INSULIN ASPART SUPPLEMENTAL SCALE SQ SCH ×5 (08:29→22:08)
[2017-11-21] MEDS: PREGABALIN 75 MG CAP PO SCH ×3 (09:46→18:01)
[2017-11-21] MEDS: amLODIPine BESYLATE 5 MG TAB PO SCH (09:46)
[2017-11-21] MEDS: ESCITALOPRAM OXALATE 20 MG TAB PO SCH (09:46)
[2017-11-21] MEDS: LISINOPRIL 5 MG TAB PO SCH (09:49)
--- NOTE | 2017-11-21 14:52 | HHI.PYPN ---
Subjective Remarks Patient was seen and case discussed with nursing. Patient is disheveled and disorganized. She describes fleeting suicidal ideation. She denies intent or plan. She is concerned about homelessness after discharge. Describes her mood is "anxious." She denies auditory visual hallucinations. Tolerating medications well Mental Status Examination Appearance: Appropriate Consciousness: Alert Orientation: Person, Place, Date/Time Speech: Unremarkable, Rapid Language: Adequate (somewhat) Fund of Knowledge: Adequate Attention and Concentration: Other (fair) Memory: Unremarkable (fair) Mood: Sad Affect: Other (slight increased range and intensity) Thought Process & Associations: Intact Thought Content: Appropriate Hallucination Type: None Delusion Type: Paranoid (perhaps mildly) Suicidal Ideation: Yes (fleeting) Suicidal Plan: No Suicidal Intention: No Homicidal Ideation: No Homicidal Plan: No Homicidal Intention: No Insight: Poor Judgment: Poor Results Labs Date/Time Source Procedure Growth Status 11/16/17 16:50 Urine Clean Catch Urine Culture - Final 50-100,000 CFU/ML MIXED GRAM POSITIVE... Complete Vitals/IOs Vital Signs Date Time Temp Pulse Resp B/P (MAP) Pulse Ox O2 Delivery O2 Flow Rate FiO2 11/21/17 06:14 97.7 56 16 121/58 (52) 97 Assessment & Plan Problem List: (1) Adjustment disorder with mixed disturbance of emotions and conduct ICD Codes: F43.25 - Adjustment disorder with mixed disturbance of emotions and conduct Assessment & Plan Continue current treatment plan Justification for Cont. Inpt. Patient would decompensate in a less restrictive setting Request HC Surrog/Guard Advoc?: No Ollie Marshall DO Nov 21, 2017 14:52
[2017-11-21 18:25] VITALS: BP 155/66; PULSE 60; RESP 17; TEMP 97.7; O2SAT 96
[2017-11-21] MEDS: traZODone HCL 100 MG TAB PO PRN (22:09)
[2017-11-21] MEDS: ACETAMINOPHEN 325 MG TAB PO PRN (22:10)
[2017-11-22 05:40] VITALS: BP 141/60; PULSE 63; RESP 16; TEMP 98; O2SAT 97
[2017-11-22] MEDS: LEVOTHYROXINE SODIUM 100 MCG TAB PO SCH (06:24)
[2017-11-22] MEDS: INSULIN ASPART SUPPLEMENTAL SCALE SQ SCH ×4 (08:01→23:02)
[2017-11-22] MEDS: PREGABALIN 75 MG CAP PO SCH ×3 (10:35→18:52)
[2017-11-22] MEDS: LISINOPRIL 5 MG TAB PO SCH (10:35)
[2017-11-22] MEDS: ESCITALOPRAM OXALATE 20 MG TAB PO SCH (10:35)
[2017-11-22] MEDS: amLODIPine BESYLATE 5 MG TAB PO SCH (10:36)
--- NOTE | 2017-11-22 13:11 | HHI.PYPN ---
Subjective Remarks Patient was seen and case discussed with nursing. Patient continues to complain of a generalized anxiety which is evident in her affect. Her main stressor appears to be homelessness after discharge. She was reassured that this would not occur. She continues to deny auditory visual hallucinations. Yesterday she admitted to fleeting suicidal thoughts which she denies today Mental Status Examination Appearance: Appropriate Consciousness: Alert Orientation: Person, Place, Date/Time Speech: Unremarkable, Rapid Language: Adequate (somewhat) Fund of Knowledge: Adequate Attention and Concentration: Other (fair) Memory: Unremarkable (fair) Mood: Sad Affect: Other (slight increased range and intensity) Thought Process & Associations: Intact Thought Content: Appropriate Hallucination Type: None Delusion Type: Paranoid (perhaps mildly) Suicidal Ideation: No Suicidal Plan: No Suicidal Intention: No Homicidal Ideation: No Homicidal Plan: No Homicidal Intention: No Insight: Poor Judgment: Poor Results Labs Date/Time Source Procedure Growth Status 11/16/17 16:50 Urine Clean Catch Urine Culture - Final 50-100,000 CFU/ML MIXED GRAM POSITIVE... Complete Vitals/IOs Vital Signs Date Time Temp Pulse Resp B/P (MAP) Pulse Ox O2 Delivery O2 Flow Rate FiO2 11/22/17 05:40 98.0 63 16 141/60 (87) 97 Intake and Output 11/22/17 11/22/17 11/23/17 08:00 16:00 00:00 Intake Total 720 ml Balance 720 ml Assessment & Plan Problem List: (1) Adjustment disorder with mixed disturbance of emotions and conduct ICD Codes: F43.25 - Adjustment disorder with mixed disturbance of emotions and conduct Assessment & Plan Continue current treatment plan Justification for Cont. Inpt. Patient will decompensate in a less restrictive setting Request HC Surrog/Guard Advoc?: No Ollie Marshall DO Nov 22, 2017 13:10
[2017-11-22 18:49] VITALS: BP 129/56; PULSE 60; RESP 16; TEMP 98.5; O2SAT 97
[2017-11-22] MEDS: traZODone HCL 100 MG TAB PO PRN (22:21)
[2017-11-23 05:54] VITALS: BP 107/64; PULSE 70; RESP 16; TEMP 97.7; O2SAT 96
[2017-11-23] MEDS: LEVOTHYROXINE SODIUM 100 MCG TAB PO SCH (06:22)
[2017-11-23] MEDS: INSULIN ASPART SUPPLEMENTAL SCALE SQ SCH ×4 (07:31→21:36)
[2017-11-23] MEDS: ESCITALOPRAM OXALATE 20 MG TAB PO SCH (08:23)
[2017-11-23] MEDS: amLODIPine BESYLATE 5 MG TAB PO SCH (08:23)
[2017-11-23] MEDS: PREGABALIN 75 MG CAP PO SCH ×3 (08:23→17:27)
[2017-11-23] MEDS: LISINOPRIL 5 MG TAB PO SCH (08:25)
[2017-11-23] MEDS ORDERED: AMLO5 PO (15:06)
[2017-11-23] MEDS ORDERED: NOVORP2 SQ (15:06)
[2017-11-23] MEDS ORDERED: LYRI150C PO (15:06)
[2017-11-23] MEDS ORDERED: HYDR50TA94 PO (15:06)
[2017-11-23] MEDS ORDERED: ESCI20TA PO (15:06)
[2017-11-23] MEDS ORDERED: LEVEMIR SQ (15:06)
[2017-11-23] MEDS ORDERED: LEVO100T5 PO (15:06)
[2017-11-23] MEDS ORDERED: LISI-519 PO (15:06)
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
[2017-11-23 18:03] VITALS: BP 139/64; PULSE 57; RESP 15; TEMP 97.8; O2SAT 96
[2017-11-23] MEDS: traZODone HCL 100 MG TAB PO PRN (23:08)
[2017-11-23] MEDS: ACETAMINOPHEN 325 MG TAB PO PRN (23:10)
== END 2017-11-24 05:40 | disposition home or self-care (01) | DRG 882 ==
LOC: NEPJ 14:51 → NEDA 22:14 → H260 23:35
PROVIDERS: ADMIT Psychiatry & Neurology Psychiatry; ATTEND Psychiatry & Neurology Psychiatry
DX: F43.25 Adjustment disorder with mixed disturbance of emotions and conduct (principal); E11.22 Type 2 diabetes mellitus with diabetic chronic kidney disease; R45.851 Suicidal ideations; E11.40 Type 2 diabetes mellitus with diabetic neuropathy, unspecified; E07.9 Disorder of thyroid, unspecified; F12.90 Cannabis use, unspecified, uncomplicated; M79.7 Fibromyalgia; F43.10 Post-traumatic stress disorder, unspecified; I12.9 Hypertensive chronic kidney disease with stage 1 through stage 4 chronic kidney disease, or unspecified chronic kidney disease; E03.9 Hypothyroidism, unspecified; E78.1 Pure hyperglyceridemia; G89.29 Other chronic pain; M19.90 Unspecified osteoarthritis, unspecified site; N18.9 Chronic kidney disease, unspecified; Z79.4 Long term (current) use of insulin; Z87.11 Personal history of peptic ulcer disease; Z96.651 Presence of right artificial knee joint; Z72.0 Tobacco use; F41.1 Generalized anxiety disorder; K62.1 Rectal polyp
CPT/HCPCS: 80048; 80053; 80061; 80307; 81001; 82948; 83036; 84443; 85025; 87086; 93005; J1815

== ENCOUNTER → 2017-11-19 | Outpatient (CLI) | payer MEDICAID ==
[~2017-11-19] MED LIST: AMLO5 PO; ATEN50TA PO; ESCI20TA PO; HYDR50TA94 PO; LANTUS2P SQ; LEVEMIR SQ; LEVO100T5 PO; LEXA5TAB PO; LIDOCAINE HCL 1% PF 5 ML SYRINGE OTHER ONE; LISI-519 PO; LYRI150C PO; NOVORP2 SQ; NRDRIP SQ; PROPOFOL 200 MG/20 ML AMP IV ONE
[2017-11-19 15:45] VITALS: BP 103/52; PULSE 47; RESP 16; TEMP 97.1; O2SAT 94
--- NOTE | 2017-11-19 16:16 | PD.PROCEDR ---
GI Procedure PROCEDURE PERFORMED EGD with biopsy followed by colonoscopy with biopsy INDICATION FOR PROCEDURE Loose stools, weight loss, loss of appetite, lower abdominal pain PROCEDURE: The procedure, risks and benefits were discussed with Ms. Kohler and informed consent was obtained. Anesthesia sedated her with Diprivan. She was placed in the left lateral decubitus position. EGD: The Pentax videoscope was introduced through the oropharynx and advanced to the second portion of the duodenum under direct visualization. Retroflexion was performed in the stomach. FINDINGS: Esophagus this appeared to be unremarkable with normal limits Stomach this too appeared to be unremarkable and within normal limits Duodenum this too appeared to be unremarkable and within normal limits random biopsies were taken from the duodenum Colonoscopy: The Pentax videoscope was introduced through the rectum and advanced to cecum where the ileocecal valve and appendiceal orifice were identified. Retroflexion was performed in the rectum. Colonic prep was fair FINDINGS: Colonic withdrawal time greater than 6 minutes as the scope was slowly withdrawn colonic mucosa was carefully inspected the patient was noted to have a very small diminutive polyp in the rectum that was excised using the biopsy forceps otherwise colonic examination was unremarkable and within normal limits random biopsies were taken from the ascending colon and descending colon for further evaluation retroflexion in the rectum was unremarkable so as rectal examination ESTIMATED BLOOD LOSS: None SPECIMENS REMOVED: Duodenal and colon biopsies COMPLICATIONS: None IMPRESSION: Normal EGD Small rectal polyp Otherwise normal colonoscopy PLAN: Await biopsies High fiber diet Colonoscopy in 5 years Prasanna Canales MD Nov 19, 2017 16:16
== END ==
LOC: HSDC 13:45
PROVIDERS: ATTEND Internal Medicine Gastroenterology
DX: R10.30 Lower abdominal pain, unspecified (principal); R63.4 Abnormal weight loss; R19.7 Diarrhea, unspecified; K62.1 Rectal polyp
CPT/HCPCS: 88305